=== PATIENT | male | born 1975 | race Caucasian/White ===

== ENCOUNTER → 2020-10-20 | Outpatient (CLI) | payer BC ==
--- NOTE | 2020-10-20 11:26 | US ---
EXAMINATION TYPE: US scrotum with doppler. Grayscale and color Doppler Duplex imaging performed of t zenon scrotum. DATE OF EXAM: 10/20/2020 COMPARISON: NONE CLINICAL HISTORY: N50.8 Other specified disorders of male genital or. pain left testicle EXAM MEASUREMENTS: TESTICLES: Right Testicle: 4.8 x 2.3 x 3.4 cm Left Testicle: 4.3 x 2.2 x 3.3 cm EPIDIDYMIS HEAD: Right Epididymis: 1.4 cm Left Epididymis: 0.8 cm Doppler performed to assess for testicular vascularity; good bilateral color flow and waveforms are s een. There is no evidence of testicular torsion. Presence of hydroceles: no significant fluid collection Presence of varicoceles: inferior to left testicle dense echogenic area posterior mid left testicle= 0.4cm IMPRESSION: Left-sided varicoceles.
== END | disposition home or self-care (01) ==
LOC: RADUSWWP 10:13
PROVIDERS: ATTEND Internal Medicine
DX: I86.1 Scrotal varices (principal); Z88.0 Allergy status to penicillin
CPT/HCPCS: 76870; 93975

== ENCOUNTER → 2021-07-09 | Outpatient (CLI) | payer BC ==
--- NOTE | 2021-07-09 13:50 | XR ---
EXAMINATION TYPE: XR chest 2V DATE OF EXAM: 07/09/2021 COMPARISON: None HISTORY: 45-year-old male R06.02, shortness of breath TECHNIQUE: Frontal and lateral views FINDINGS: The cardiomediastinal silhouette, aorta, and pulmonary vasculature are within normal limits. Lungs an d pleural spaces are clear. IMPRESSION: No acute cardiopulmonary process.
== END | disposition home or self-care (01) ==
LOC: RADXRMAIN 10:13
PROVIDERS: ATTEND Physician Assistant
DX: R06.02 Shortness of breath (principal)
CPT/HCPCS: 71046